=== PATIENT | male | born 1985 | race Caucasian/White ===

== ENCOUNTER 2016-12-31 13:27 | Emergency (ER) | payer OTHER ==
[~2016-12-31] VITALS: Ht 175.3 cm; Wt 107.1 kg
[2016-12-31 13:34] VITALS: BP 163/104; PULSE 94; TEMP 37.1; O2SAT 99; Ht 175.3 cm; Wt 107.1 kg
[2016-12-31] MEDS ORDERED: PRED5PAK3 PO (14:01)
[2016-12-31 14:50] LABS: BASO % 0.4 %; BASO ABS # 0.05 K/uL (0-0.2); COMPLETE YES; EOS % 0.4 %; HEMATOCRIT 40.1 % (42-52); IG% 0.6 %; LYMPH % 20.5 %; LYMPH ABS # 2.91 K/uL (1.2-3.4); MEAN CELL VOLUME 87.2 fL (80-100); MEAN CORPUSCULAR HEMOGLOBIN 30.7 pg (25-34); MEAN CORPUSCULAR HGB CONC 35.2 g/dl (32-36); MEAN PLATELET VOLUME 10.4 fL (7.4-10.4); NEUT % 74.1 %; PLATELET COUNT 355 K/uL (130-400); WHITE BLOOD COUNT 14.17 K/uL (4.8-10.8)
--- NOTE | 2016-12-31 15:08 | EMERGENCY ROOM VISIT NOTE ---
History First contact with patient: 13:48 Chief Complaint: KNEEPAIN Stated Complaint: RIGHT KNEE PAIN History of Present Illness The patient is a 31 year old male who presents to the Emergency Room with complaints of right knee pain and swelling. The patient states that he has had trouble with pain in the also intermittent pain and swelling in his feet. He states that he has never been formally diagnosed with gout the police that what he may have. He states that he usually takes prednisone for anti- inflammatories which seems to alleviate his symptoms. He was seen at urgent care a few days ago and was started on prednisone. He reports continued pain and swelling in the right knee. He states he is having difficulty bending and moving the knee due to the pain and swelling. He rates his discomfort an 8/10. He denies any fevers. He denies any redness. He denies any rashes or recent tick bites. Review of Systems A 10 system review of systems was completed with positives and pertinent negatives listed in the HPI. Past Medical/Surgical History Patient denies Social History Smoking Status: Never Smoker Occupation Status: employed Current/Historical Medications Scheduled Cephalexin Monohydrate (Keflex), 500 MG PO QID Prednisone (Sterapred 12 Day), 0 PO UD Scheduled PRN Tramadol (Ultram), 1 TAB PO Q6 PRN for Pain Allergies Coded Allergies: No Known Allergies (Unverified , 12/31/16) Physical Exam Vital Signs Date Time Temp Pulse Resp B/P Pulse Ox O2 Delivery O2 Flow Rate FiO2 12/31/16 13:34 37.1 94 18 163/104 99 Room Air Physical Exam VITALS: Vitals are noted on the nurse's note and reviewed by myself. Vital signs stable. The patient is afebrile. GENERAL: This is a 31-year-old male, in no acute distress, nondiaphoretic, well- developed well-nourished. SKIN: There is edema and minimal warmth to the right knee. There is no tenting of the skin. Capillary reflex less than 2 seconds. HEAD: Normocephalic atraumatic. EARS: External ears are normal in appearance. EYES: Pupils equal round and reactive to light and accommodation. Conjunctivae without injection, sclerae without icterus. Extraocular movements intact. NOSE: Patent, turbinates without inflammation or discharge. MOUTH: Mucous membranes moist. Tonsils are not enlarged. Pharynx without erythema or exudate. Uvula midline. Airway patent. Tongue does not deviate. NECK: Supple without nuchal rigidity. No lymphadenopathy. No thyromegaly. Cervical spine is nontender. No JVD. HEART: Regular rate and rhythm without murmurs gallops or rubs. LUNGS: Clear to auscultation bilaterally without wheezes, rales or rhonchi. No retractions or accessory muscle use. MUSCULOSKELETAL: There is a moderate effusion to the right knee. There is minimal warmth but no significant erythema. There is no pain with joint loading. The range of motion is decreased secondary to pain and swelling. There is no obvious laxity. The remaining extremities are unremarkable. NEURO: Patient was alert and oriented to person place and time. No focal neurological deficits. Medical Decision & Procedures Laboratory Results 12/31/16 14:15 Red Blood Count 4.60, Mean Corpuscular Volume 87.2, Mean Corpuscular Hemoglobin 30.7, Mean Corpuscular Hemoglobin Concent 35.2, Mean Platelet Volume 10.4, Neutrophils (%) (Auto) 74.1, Lymphocytes (%) (Auto) 20.5, Monocytes (%) (Auto) 4.0, Eosinophils (%) (Auto) 0.4, Basophils (%) (Auto) 0.4, Neutrophils # (Auto) 10.51, Lymphocytes # (Auto) 2.91, Monocytes # (Auto) 0.57, Eosinophils # (Auto) 0.05, Basophils # (Auto) 0.05 12/31/16 14:15 Test 12/31/16 00:00 12/31/16 14:15 12/31/16 17:00 Synovial Fluid Uric Acid 9.9 mg/dl White Blood Count 14.17 K/uL (4.8-10.8) Red Blood Count 4.60 M/uL (4.7-6.1) Hemoglobin 14.1 g/dL (14.0-18.0) Hematocrit 40.1 % (42-52) Mean Corpuscular Volume 87.2 fL (80-100) Mean Corpuscular Hemoglobin 30.7 pg (25-34) Mean Corpuscular Hemoglobin Concent 35.2 g/dl (32-36) Platelet Count 355 K/uL (130-400) Mean Platelet Volume 10.4 fL (7.4-10.4) Neutrophils (%) (Auto) 74.1 % Lymphocytes (%) (Auto) 20.5 % Monocytes (%) (Auto) 4.0 % Eosinophils (%) (Auto) 0.4 % Basophils (%) (Auto) 0.4 % Neutrophils # (Auto) 10.51 K/uL (1.4-6.5) Lymphocytes # (Auto) 2.91 K/uL (1.2-3.4) Monocytes # (Auto) 0.57 K/uL (0.11-0.59) Eosinophils # (Auto) 0.05 K/uL (0-0.5) Basophils # (Auto) 0.05 K/uL (0-0.2) RDW Standard Deviation 40.8 fL (36.4-46.3) RDW Coefficient of Variation 12.8 % (11.5-14.5) Immature Granulocyte % (Auto) 0.6 % Immature Granulocyte # (Auto) 0.08 K/uL (0.00-0.02) Erythrocyte Sedimentation Rate 30 mm/hr (0-14) Anion Gap 11.0 mmol/L (3-11) Est Creatinine Clear Calc Drug Dose 140.3 ml/min Estimated GFR () 128.0 Estimated GFR (Non- 110.4 BUN/Creatinine Ratio 20.7 (10-20) Uric Acid 8.1 mg/dl (2.6-7.2) Calcium Level 9.9 mg/dl (8.5-10.1) Total Bilirubin 0.6 mg/dl (0.2-1) Aspartate Amino Transf (AST/SGOT) 26 U/L (15-37) Alanine Aminotransferase (ALT/SGPT) 71 U/L (12-78) Alkaline Phosphatase 90 U/L (45-117) C-Reactive Protein 1.38 mg/dl (0-0.29) Total Protein 8.2 gm/dl (6.4-8.2) Albumin 4.2 gm/dl (3.4-5.0) Globulin 4.0 gm/dl (2.5-4.0) Albumin/Globulin Ratio 1.1 (0.9-2) Lyme Disease IgG Antibody NEG (NEG) Lyme Disease IgM Antibody NEG (NEG) Synovial Fluid Source KNEE Synovial Fluid Color YELLOW Synovial Fluid Appearance HAZY Synovial Fluid WBC 2212 /uL (0-200) Synovial Fluid RBC < 3000 /uL Synovial Fluid Polynuclear WBCs % 60.6 % Synovial Fluid Mononuclear WBCs % 39.4 % Synovial Fluid Crystals Date/Time Source Procedure Growth Status 12/31/16 17:00 Joint Fluid/Space (Synovial) Knee Right Gram Stain - Final Complete 12/31/16 17:00 Joint Fluid/Space (Synovial) Knee Right Bacterial Culture - Final NO GROWTH Complete Medications Administered Medications (Trade) Dose Ordered Sig/Kelsey Route Start Time Stop Time Status Last Admin Dose Admin Cephalexin Monohydrate (Keflex 500MG Home Pack) 1 homepack NOW ONCE PO 12/31/16 19:30 12/31/16 19:31 DC 12/31/16 19:37 1 HOMEPACK Tramadol HCl (Ultram Home Pack) 1 homepack UD ONCE PO 12/31/16 19:30 12/31/16 19:31 DC 12/31/16 19:37 1 HOMEPACK ED Course The patient was seen and examined. Previous visits were reviewed. The patient states he just had x-rays of the knee. Laboratory studies were ordered and are pending. The case was signed out to Kory Puri PA-C. Please see his dictation for additional details and disposition. Medical Decision The differential diagnosis includes septic joint, gout, Lyme disease, among others Impression Primary Impression: Knee pain Additional Impression: Knee effusion, right Departure Information Prescriptions Tramadol (Ultram) 50 Mg Tab 1 TAB PO Q6 Y for Pain, #12 TAB For Initial Treatment Prov: Kory Puri PA-C 12/31/16 Cephalexin Monohydrate (KEFLEX) 500 Mg Cap 500 MG PO QID for 9 Days, #36 CAP Prov: Kory Puri PA-C 12/31/16 Referrals No Doctor, Assigned (PCP) Patient Instructions [facility] Problem Qualifiers
[2016-12-31 15:10] LABS: BUN/CREATININE RATIO 20.7 (10-20); C-REACTIVE PROTEIN 1.38 mg/dl (0-0.29); CALCIUM 9.9 mg/dl (8.5-10.1); CREATININE 0.92 mg/dl (0.60-1.40); POTASSIUM 3.5 mmol/L (3.5-5.1)
[2016-12-31 15:12] LABS: ALB/GLOB RATIO 1.1 (0.9-2); URIC ACID 8.1 mg/dl (2.6-7.2)
[2016-12-31 16:10] LABS: LYME DISEASE AB IGG NEG (NEG); LYME DISEASE AB IGM NEG (NEG)
[2016-12-31] MEDS ORDERED: XYLOCAINE 1%/SOD BICARB 20 ML VIAL INFIL ONE (16:30)
--- NOTE | 2016-12-31 17:25 | EMERGENCY ROOM VISIT NOTE ---
ED Visit Note 39-year-old male who I was asked by Kory Puri PA-C to perform a diagnostic arthrocentesis after 2 unsuccessful attempts. Please see Mr. Puri's dictation for further details of this workup. PROCEDURE NOTE: Examination of the right knee done show a 2+ joint effusion. No overriding erythema, increased warmth to palpation or skin changes noted. The patient provided verbal consent for arthrocentesis under local anesthesia. Superomedial patellofemoral condylar approach was utilized. The area was painted with iodine 3 and allowed to dry. Sterile field was created. Using buffered 1% lidocaine without epinephrine, good local wheal was administered, then was tracked into the joint without any resistance. A total of approximately 5 mL was used. Using an 18-gauge needle, the joint was then aspirated for 20 mL of straw-colored fluid. There was no haziness or unusual sediments. The remaining 7 mL of 1% lidocaine without epinephrine was then injected into the joint. The patient tolerated the procedure well without any postprocedural pain.
[2016-12-31 18:43] LABS: SYNOVIAL FLUID APPEARANCE HAZY; SYNOVIAL FLUID COLOR YELLOW; SYNOVIAL FLUID MONONUC RELAT 39.4 %; SYNOVIAL FLUID POLYNUC RELAT 60.6 %
[2016-12-31] MEDS ORDERED: TRAM-10 PO (19:27)
[2016-12-31] MEDS ORDERED: CEPH500C2 PO (19:27)
[2016-12-31] MEDS ORDERED: CEPHALEXIN 500MG HOME PACK 1 EA BTL PO ONE (19:30)
[2016-12-31] MEDS ORDERED: TRAMADOL HCL 50 MG HOME PACK PO ONE (19:30)
--- NOTE | 2017-01-01 19:00 | EMERGENCY ROOM VISIT NOTE ---
ED Visit Note First contact with patient: 15:49 Mr. Crews care was transferred to sd by Tonya Corbin PA-C at the end of her shift pending additional testing. Please see her notes and orders for his initial evaluation. In summary patient came to the emergency department for right knee pain and swelling. He reports the pain and swelling has been constant for the last few weeks and seemed to be increasing in intensity as the days progressed. He denies any precipitating traumatic events. He is expressing concerns about possible gout or infection. On transfer of care patient testing showed that he had a leukocytosis with left shift and bandemia and elevated ESR and CRP. His chemistries were pending. On my initial evaluation patient places his discomfort over the anterior aspect of the knee. He describes it as a combination of sharp and throbbing. He rated his discomfort 8/10. The pain was nonradiating. The pain worsens with flexion beyond 20 and palpation. He has not taken any medications for pain prior to arrival at the hospital. He denied any associated fevers, chills, sweats, skin eruptions, skin color changes, back pain, hip pain, lower leg pain , leg weakness/numbness/tingling. Additionally he does report he was seen at a local urgent care center and was placed on prednisone a few days prior to be seen in the emergency department. Physical Examination: Vital Signs: Date Time Temp Pulse Resp B/P Pulse Ox O2 Delivery O2 Flow Rate FiO2 12/31/16 13:34 37.1 94 18 163/104 99 Room Air GENERAL: 31-year-old male in mild to moderate distress due to pain, nontoxic- appearing, afebrile and hemodynamically stable. NEUROLOGICAL: Awake, alert and oriented to person, place and time. Answering questions appropriately and following commands. SKIN: Warm, dry and pink. No soft tissue eruptions or trauma noted. RIGHT KNEE: No gross bony deformity. No shortening or malrotation. No tenderness in the hip, thigh, lower leg, ankle or foot. Severe tenderness over the anterior aspect of the knee. I do not appreciate any erythema. Positive ballottement test. Positive patellar apprehension test. I did not appreciate any laxity of the collateral ligaments. Meniscus testing was deferred. The knee stabilize him full range of motion in plantar flexion and dorsiflexion of the foot as well as flexion and extension of all toes. Throughout the lower legs and foot the skin was warm and pink and capillary refill is brisk. ED Course: Patient is assessed as noted above. Laboratory Testing: Test 12/31/16 00:00 12/31/16 14:15 12/31/16 17:00 Range/Units Hemoglobin 14.1 14.0-18.0 g/dL Hematocrit 40.1 42-52 % Mean Corpuscular Volume 87.2 80-100 fL Mean Corpuscular Hemoglobin 30.7 25-34 pg Mean Corpuscular Hemoglobin Concent 35.2 32-36 g/dl Platelet Count 355 130-400 K/uL Mean Platelet Volume 10.4 7.4-10.4 fL Neutrophils (%) (Auto) 74.1 % Lymphocytes (%) (Auto) 20.5 % Monocytes (%) (Auto) 4.0 % Eosinophils (%) (Auto) 0.4 % Basophils (%) (Auto) 0.4 % Neutrophils # (Auto) 10.51 1.4-6.5 K/uL Lymphocytes # (Auto) 2.91 1.2-3.4 K/uL Monocytes # (Auto) 0.57 0.11-0.59 K/uL Eosinophils # (Auto) 0.05 0-0.5 K/uL Basophils # (Auto) 0.05 0-0.2 K/uL RDW Standard Deviation 40.8 36.4-46.3 fL RDW Coefficient of Variation 12.8 11.5-14.5 % Immature Granulocyte % (Auto) 0.6 % Immature Granulocyte # (Auto) 0.08 0.00-0.02 K/uL Erythrocyte Sedimentation Rate 30 0-14 mm/hr Sodium Level 140 136-145 mmol/L Potassium Level 3.5 3.5-5.1 mmol/L Chloride Level 103 98-107 mmol/L Carbon Dioxide Level 26 21-32 mmol/L Anion Gap 11.0 3-11 mmol/L Blood Urea Nitrogen 19 7-18 mg/dl Creatinine 0.92 0.60-1.40 mg/dl Est Creatinine Clear Calc Drug Dose 140.3 ml/min Estimated GFR () 128.0 Estimated GFR (Non- 110.4 BUN/Creatinine Ratio 20.7 10-20 Random Glucose 103 70-99 mg/dl Uric Acid 8.1 2.6-7.2 mg/dl Calcium Level 9.9 8.5-10.1 mg/dl Total Bilirubin 0.6 0.2-1 mg/dl Aspartate Amino Transf (AST/SGOT) 26 15-37 U/L Alanine Aminotransferase (ALT/SGPT) 71 12-78 U/L Alkaline Phosphatase 90 45-117 U/L C-Reactive Protein 1.38 0-0.29 mg/dl Total Protein 8.2 6.4-8.2 gm/dl Albumin 4.2 3.4-5.0 gm/dl Globulin 4.0 2.5-4.0 gm/dl Albumin/Globulin Ratio 1.1 0.9-2 Lyme Disease IgG Antibody NEG NEG Lyme Disease IgM Antibody NEG NEG Right Knee Aspiration: Verbal consent was obtained after the risks and benefits were explained. The skin was prepped with betadine and a sterile field set. Aspiration landmarks were identified and injected with approximately 3 mL of buffered 1% lidocaine. I made 2 attempts to aspirate joint fluid and was unsuccessful. I then spoke to Calvin Luke PA-C and requested his assistance. He was able to successfully aspirate the knee. Please see his notes for this procedure. Joint Fluid Aspiration Laboratory Tests Test 12/31/16 00:00 12/31/16 14:15 12/31/16 17:00 Range/Units Synovial Fluid Uric Acid 9.9 mg/dl Synovial Fluid Source KNEE Synovial Fluid Color YELLOW Synovial Fluid Appearance HAZY Synovial Fluid WBC 2212 0-200 /uL Synovial Fluid RBC < 3000 /uL Synovial Fluid Polynuclear WBCs % 60.6 % Synovial Fluid Mononuclear WBCs % 39.4 % Synovial Fluid Crystals Gram Stain: No organisms but multiple white blood cells. Culture And/or Sensitivity: Pending. Patient's case was reviewed with Dr. Jones; we agreed on diagnostic approach, treatment, disposition and plan. Patient was was placed in an Charly bandage and instructed on crutch use. Patient was educated about tonight's findings and instructed on his treatment plan; he verbalizes understanding and agreement with this plan. Clinical Impression: Right knee pain. Disposition: Patient discharged home in stable condition; prior to departure he was reassessed and subjectively reported he was feeling much better Plan: Patient was prescribed Ultram 50 mg every 6 hours as needed for pain and was told he can alternate this with 650 mg of acetaminophen every 3 hours. Ice, Charly bandage and nonweightbearing crutches were discussed with the patient. Patient was placed on Keflex 500 mg 4 times a day for 10 days. Patient indicated that he has had some previous problems with gastric reflux I did suggest that he use 150 mg of Zantac 2 times a day. Patient indicated that his mother and made a follow-up appointment for him at Dr. Miguel's office; I encouraged him to keep that appointment. Patient was encouraged return the ED for worsening/uncontrolled swelling, uncontrolled pain, redness, red streaking, fevers or any new/concerning symptoms.
== END 2016-12-31 19:45 | disposition home or self-care (01) ==
LOC: C.EDB 13:31 → C.EDD 19:45
DX: M25.561 Pain in right knee (principal); M25.461 Effusion, right knee

== ENCOUNTER → 2018-01-12 | Outpatient (CLI) | payer OTHER ==
[~2018-01-12] MED LIST: PRED5PAK3 PO
--- NOTE | 2018-01-12 16:02 | DIAGNOSTIC IMAGING REPORT ---
LUMBAR SPINE 5 VIEWS HISTORY: M54.32 Sciatica of left side COMPARISON: None. FINDINGS: There is no fracture. No subluxation. Minimal anterior wedging at T11, T12, and L1 is considered to be within the range of normal limits. Mild disc space narrowing at L5-S1. The sacrum is intact. IMPRESSION: No acute fracture or subluxation within the lumbar spine. Mild degenerative disc disease at L5-S1 Electronically signed by: Nam Posadas M.D. 01/12/2018 4:01 PM Dictated Date/Time: 01/12/2018 3:58 PM
== END | disposition home or self-care (01) ==
LOC: C.RAD1850 15:05
PROVIDERS: ATTEND Physician Assistant
DX: M54.32 Sciatica, left side (principal)

== ENCOUNTER → 2018-01-22 | Outpatient (CLI) | payer OTHER ==
--- NOTE | 2018-01-22 15:24 | DIAGNOSTIC IMAGING REPORT ---
L WRIST MIN 3 VIEWS ROUTINE, R WRIST MIN 3 VIEWS ROUTINE HISTORY: 32 years-old Male M25.531 Acute pain of both wrists. Acute bilateral wrist pain with clinical concern for gout COMPARISON: None available TECHNIQUE: 4 views of the bilateral wrists FINDINGS: LEFT: No acute fracture, dislocation or erosive arthropathy. No evidence of crystalline arthropathy, focal soft tissue swelling or opaque foreign body. RIGHT: No acute fracture, dislocation or evidence of erosive arthropathy. No evidence of crystalline arthropathy. Cortical thickening with increased sclerosis about the fifth metacarpal suggests healed remote fracture deformity. Soft tissues are within normal limits without opaque foreign body. Subcortical cyst of the third metacarpal head. IMPRESSION: 1. No acute fracture or dislocation. 2. No evidence of erosive or crystalline arthropathy. 3. Healed remote fracture deformity of the right fifth metacarpal. The above report was generated using voice recognition software. It may contain grammatical, syntax or spelling errors. Electronically signed by: Rajesh Schulz M.D. 01/22/2018 3:23 PM Dictated Date/Time: 01/22/2018 3:19 PM
--- NOTE | 2018-01-22 15:26 | DIAGNOSTIC IMAGING REPORT ---
L FOOT MIN 3 VIEWS ROUTINE HISTORY: 32 years-old Male M25.531 Acute pain of both wristsI am looking for gouty erosions acute left foot pain with concern for gouty arthropathy COMPARISON: None available TECHNIQUE: 3 views of the left foot FINDINGS: There is mild soft tissue swelling about the first MTP joint. No acute fracture, dislocation, significant degenerative changes or evidence of erosive or crystalline arthropathy. No opaque foreign body. IMPRESSION: Mild soft tissue swelling about the first MTP joint without acute bony abnormality. The above report was generated using voice recognition software. It may contain grammatical, syntax or spelling errors. Electronically signed by: Rajesh Schulz M.D. 01/22/2018 3:25 PM Dictated Date/Time: 01/22/2018 3:23 PM
== END | disposition home or self-care (01) ==
LOC: C.RAD1850 15:04
PROVIDERS: ATTEND Internal Medicine Rheumatology
DX: M25.531 Pain in right wrist (principal); M25.532 Pain in left wrist